=== PATIENT | male | born 1980 | race African-American/Black ===

== ENCOUNTER 2020-12-19 18:35 | Emergency (ER) | payer SELFPAY ==
[2020-12-19] MEDS ORDERED: Lidocaine 1% 20 ML MDV ONE (18:50)
== END 2020-12-19 20:20 ==
LOC: MADERS 18:35
DX: S02.2XXA Fracture of nasal bones, initial encounter for closed fracture (principal); S01.81XA Laceration without foreign body of other part of head, initial encounter; H05.221 Edema of right orbit; L98.9 Disorder of the skin and subcutaneous tissue, unspecified; X58.XXXA Exposure to other specified factors, initial encounter
CPT/HCPCS: 12011; 70450; 72125